=== PATIENT | male | born 1990 | race Caucasian/White ===

== ENCOUNTER 2017-08-22 00:47 | Emergency (ER) | payer SELFPAY ==
[~2017-08-22] VITALS: Ht 188 cm; Wt 78.0 kg
[2017-08-22 01:05] VITALS: BP 124/81
[2017-08-22] MEDS ORDERED: HYDROCODONE/ACETAMINOPHEN 10/325MG TABLET PO ONE (01:30)
== END 2017-08-22 01:38 | disposition left against medical advice (07) ==
LOC: ER 00:47
DX: S16.1XXA Strain of muscle, fascia and tendon at neck level, initial encounter (principal); G89.29 Other chronic pain; M54.5 Low back pain; F12.10 Cannabis abuse, uncomplicated; Z98.1 Arthrodesis status; X58.XXXA Exposure to other specified factors, initial encounter; Y93.89 Activity, other specified; Y92.098 Other place in other non-institutional residence as the place of occurrence of the external cause
CPT/HCPCS: 99284; Z7610